=== PATIENT | male | born 1985 | race Caucasian/White ===

== ENCOUNTER 2017-06-15 10:29 | Emergency (ER) | payer OTHER ==
[~2017-06-15] VITALS: Ht 175.3 cm; Wt 79.4 kg
[2017-06-15 10:35] VITALS: BP 131/87
--- NOTE | 2017-06-15 11:05 | RAD ---
HAND RIGHT 3V Clinical Indication: Hand injury, pain Comparison: None. Findings: Acute fracture of the distal fourth metacarpal with approximately 25 degrees volar angulation. Foreshortening of the distal fifth metacarpal. The joint spaces are maintained. Bony mineralization is normal for the patient's age. Moderate soft tissue swelling of the hand. No radiopaque foreign body. IMPRESSION: 1. Acute fracture of the distal fourth metacarpal with volar angulation. 2. Moderate soft tissue swelling of the hand. 3. Foreshortening of the distal fifth metacarpal likely related to remote injury. No fracture lucency seen to indicate acute fracture of this metacarpal.
--- NOTE | 2017-06-15 11:06 | PHYS DOC ---
Past History Past Medical History: No Pertinent History Past Surgical History: No Surgical History Alcohol Use: Occasionally Drug Use: None Adult General Chief Complaint Chief Complaint: HAND PROBLEM HPI HPI Patient is a 32 year old M who presents with right hand pain. Pulse states that last night he was at a bar playing a punching game when he hits the punching bag and his hand began to hurt. He describes swelling and constant dull pain that is worse with palpation and movement. He has no other associated symptoms. He has no other exacerbating or alleviating factors. Review of Systems Review of Systems Constitutional: Denies fever or chills [] Eyes: Denies change in visual acuity, redness, or eye pain [] HENT: Denies nasal congestion or sore throat [] Respiratory: Denies cough or shortness of breath [] Cardiovascular: No additional information not addressed in HPI [] GI: Denies abdominal pain, nausea, vomiting, bloody stools or diarrhea [] : Denies dysuria or hematuria [] Musculoskeletal: Denies back pain Integument: Denies rash or skin lesions [] Neurologic: Denies headache, focal weakness or sensory changes [] Endocrine: Denies polyuria or polydipsia [] All other systems were reviewed and found to be within normal limits, except as documented in this note. Family History Family History No pertinent family medical history was reported Current Medications Current Medications No current medications Allergies Allergies Allergies Coded Allergies Type Severity Reaction Last Updated Verified No Known Drug Allergies 06/15/17 No Physical Exam Physical Exam Constitutional: Well developed, well nourished, no acute distress, non-toxic appearance. [] HENT: Normocephalic, atraumatic Eyes: PERRLA, EOMI, conjunctiva normal, no discharge. [] Neck: Normal range of motion, no tenderness, supple, no stridor. [] Cardiovascular:Heart rate regular rhythm, Lungs & Thorax: Bilateral breath sounds clear to auscultation [] Extremities: ,no cyanosis, no clubbing, ROM intact, moderate dorsal swelling of the right hand over the fourth and fifth metacarpals, tenderness to palpation in that area. Range of motion normal. Strength normal. Neurologic: Alert and oriented X 3, normal motor function, normal sensory function, no focal deficits noted. [] Psychologic: Affect normal, judgement normal, mood normal. [] Current Patient Data Vital Signs Vital Signs Date Time Temp Pulse Resp B/P (MAP) Pulse Ox O2 Delivery O2 Flow Rate FiO2 06/15/17 10:35 98.6 86 16 96 Room Air EKG EKG [] Radiology/Procedures Radiology/Procedures Right hand x-ray Impressions: No acute disease Course & Med Decision Making Course & Med Decision Making Pertinent Labs and Imaging studies reviewed. (See chart for details) [] Dragon Disclaimer Dragon Disclaimer This electronic medical record was generated, in whole or in part, using a voice recognition dictation system. Departure Departure: Impression: Primary Impression: Contusion of right hand Disposition: HOME, SELF-CARE Condition: STABLE Referrals: PCP,UNKNOWN (PCP) Patient Instructions: Contusion Additional Instructions: Kwaku was seen in the ED for a hand injury. No emergency medical condition was found on history and physical exam. He did have a normal xray. His symptoms were most consistent with a contusion. He as advised to consider lidocaine patches for pain. He was advised to follow up with his primary care doctor as needed for further management. Problem Qualifiers Primary Impression: Contusion of right hand Encounter type: initial encounter Qualified Codes: S60.221A - Contusion of right hand, initial encounter NAY PETERSEN MD Jun 15, 2017 11:06
[2017-06-15] MEDS ORDERED: HYDR-2762 PO (13:35)
== END 2017-06-15 11:13 | disposition home or self-care (01) ==
LOC: ER 10:29
DX: S62.394A Other fracture of fourth metacarpal bone, right hand, initial encounter for closed fracture (principal); S60.221A Contusion of right hand, initial encounter; W22.8XXA Striking against or struck by other objects, initial encounter; Y93.89 Activity, other specified; Y99.8 Other external cause status; Y92.89 Other specified places as the place of occurrence of the external cause
CPT/HCPCS: 29130; 73130; 99284